=== PATIENT | female | born 1980 | race Hispanic/Latino ===

== ENCOUNTER 2020-09-12 13:57 | Emergency (ER) | payer SELFPAY ==
[2020-09-12] MEDS ORDERED: L.E.T. GEL 3ML SYG TP ONE (14:40)
[2020-09-12] MEDS ORDERED: SULFAMETHOX-TMP DS 800/160 TAB ONE (14:43)
[2020-09-12] MEDS ORDERED: IBUPROFEN 600 MG TABLET ONE (14:43)
== END 2020-09-12 16:25 | disposition home or self-care (01) ==
LOC: EDH 13:57
DX: L02.213 Cutaneous abscess of chest wall (principal); Z98.890 Other specified postprocedural states
CPT/HCPCS: 10060; 82948